=== PATIENT | female | born 1975 | race Caucasian/White ===

== ENCOUNTER 2018-02-11 11:12 | Emergency (ER) | payer MEDICAID ==
[~2018-02-11] VITALS: Ht 162.6 cm; Wt 54.0 kg
[~2018-02-11 11:12] MED LIST: TRAM50TA2 PO
[2018-02-11 11:18] VITALS: BP 106/68
[2018-02-11] MEDS ORDERED: benzonatate 100mg capsule PO ONE (12:20)
[2018-02-11] MEDS ORDERED: ondansetron 4mg rapidly disintigrating tab PO ONE (12:20)
[2018-02-11] MEDS ORDERED: pantoprazole 40mg Tablet.DR PO ONE (12:20)
[2018-02-11] MEDS ORDERED: acetaminophen 325mg tablet PO ONE (12:20)
[2018-02-11] MEDS ORDERED: pseudoephedrine 30mg tablet PO ONE (12:20)
== END 2018-02-11 13:04 | disposition home or self-care (01) ==
LOC: ER 11:12
DX: J06.9 Acute upper respiratory infection, unspecified (principal); J44.9 Chronic obstructive pulmonary disease, unspecified; G89.29 Other chronic pain; F17.200 Nicotine dependence, unspecified, uncomplicated; Z56.0 Unemployment, unspecified
CPT/HCPCS: 71046; 99284

== ENCOUNTER 2018-12-18 16:16 | Emergency (ER) | payer MEDICAID ==
[~2018-12-18] VITALS: Ht 162.6 cm; Wt 59.1 kg
[2018-12-18 16:22] VITALS: BP 134/87
[2018-12-18] MEDS ORDERED: CEPH-572 PO (18:00)
[2018-12-18] MEDS ORDERED: bacitracin 15gm ointment TP ONE (18:10)
[2018-12-18 18:29] LABS: BASOPHILS % (AUTO) 0.7 % (0-1); EOSINOPHILS # (AUTO) 0.2 X10'3 (0-0.9); EOSINOPHILS % (AUTO) 3.6 % (0-6); HEMATOCRIT 38.9 % (35.0-45.0); LYMPHOCYTES % (AUTO) 33.2 % (21-51); MEAN CORPUSCULAR HEMOGLOBIN 30.3 PG (27.0-31.0); MEAN CORPUSCULAR HGB CONC 33.4 g/dL (33.0-36.5); MEAN CORPUSCULAR VOLUME 90.7 FL (78-98); MEAN PLATELET VOLUME 8.1 FL (7.4-10.4); MONOCYTES # (AUTO) 0.5 X10'3 (0-0.9); NEUTROPHILS # (AUTO) 3.2 X10'3 (1.8-7.7); NEUTROPHILS % (AUTO) 53.5 % (42-75); PLATELET COUNT 287 X10'3 (140-440); RED BLOOD COUNT 4.29 X10'6 (4.20-5.60); RED CELL DISTRIBUTION WIDTH 12.9 % (11.5-14.5)
== END 2018-12-18 18:54 | disposition home or self-care (01) ==
LOC: ER 16:16
DX: L03.116 Cellulitis of left lower limb (principal); J44.9 Chronic obstructive pulmonary disease, unspecified; K21.9 Gastro-esophageal reflux disease without esophagitis; G89.29 Other chronic pain; Z59.0 Homelessness; Z56.0 Unemployment, unspecified; Z88.3 Allergy status to other anti-infective agents; Z86.14 Personal history of Methicillin resistant Staphylococcus aureus infection
CPT/HCPCS: 10060; 36415; 83605; 85025; 99283

== ENCOUNTER 2019-03-05 07:58 | Emergency (ER) | payer MEDICAID ==
[~2019-03-05] VITALS: Ht 162.6 cm; Wt 54.0 kg
[2019-03-05 08:01] VITALS: BP 134/89
[2019-03-05] MEDS ORDERED: CEPH-572 PO (08:28)
[2019-03-05] MEDS ORDERED: SULF1TAB49 PO (08:28)
[2019-03-05] MEDS ORDERED: cephalexin 250mg capsule PO ONE (08:30)
[2019-03-05] MEDS ORDERED: sulfamethoxazole/trimethoprim DS (800/160mg) tablet PO ONE (08:30)
== END 2019-03-05 08:53 | disposition home or self-care (01) ==
LOC: ER 07:59
DX: L02.415 Cutaneous abscess of right lower limb (principal); L03.115 Cellulitis of right lower limb; J44.9 Chronic obstructive pulmonary disease, unspecified; K21.9 Gastro-esophageal reflux disease without esophagitis; G89.29 Other chronic pain; Z59.0 Homelessness; Z56.0 Unemployment, unspecified; Z88.1 Allergy status to other antibiotic agents; Z79.899 Other long term (current) drug therapy
CPT/HCPCS: 99284